=== PATIENT | male | born 1985 | race Caucasian/White ===

== ENCOUNTER → 2020-06-14 | Day surgery (SDC) | payer BC ==
[~2020-06-14] VITALS: Ht 188 cm; Wt 83.9 kg
[~2020-06-14] MED LIST: BUPIVACAINE 0.5% INJ 50ML VIAL IJ ONE; BUPIVACAINE HCL 50 ML ONE; HYDROmorphone HCL 2 MG/ML VL ONE; KETAMINE HCL 10 ML ONE; METOCLOPRAMIDE HCL 5MG/ml INJ 2ml VIAL IV PRN; MIDAZOLAM HCL 1MG/1ML-2 ML VIAL ONE; MORPHINE SULFATE 4 MG/ML SYR/VIAL IV PRN; ONDANSETRON HCL 4 MG/2 ML VIAL ONE; PROPOFOL 10 MG/ML 20 ML IV ONE; ROCURONIUM 10MG/ML 10ML VIAL IV ONE; SODIUM CHLORIDE LOCK 30 ML ONE; VANCOMYCIN HCL 1000 MG VL ONE; fentaNYL CITRATE 100 MCG/2 ML VL ONE; fentaNYL CITRATE 5 ML ONE
[2020-06-14] MEDS: HYDROmorphone HCL 2 MG/ML VL IV PRN ×3 (14:30→14:51)
[2020-06-14 15:24] VITALS: BP 145/90
== END | disposition home or self-care (01) ==
LOC: SUR 07:17
PROVIDERS: ATTEND Orthopaedic Surgery Sports Medicine
DX: M75.101 Unspecified rotator cuff tear or rupture of right shoulder, not specified as traumatic (principal); M94.211 Chondromalacia, right shoulder; M65.811 Other synovitis and tenosynovitis, right shoulder; Z88.0 Allergy status to penicillin; Z88.1 Allergy status to other antibiotic agents; Z98.890 Other specified postprocedural states; Z20.828 Contact with and (suspected) exposure to other viral communicable diseases; Z79.899 Other long term (current) drug therapy
CPT/HCPCS: 29823; 29827; C1713; J1170; J2250; J2405; J2704; J3010; J3370; J3490; J7050; U0003; A4565